=== PATIENT | male | born 1965 | race African-American/Black ===

== ENCOUNTER 2019-10-12 09:19 | Outpatient (CLI) | payer OTHER, BC, SELFPAY ==
--- NOTE | ~2019-10-12 | XR_ITS ---
XR lumbar spine 2-3V DATE: 10/12/2019 10:14 INDICATION: Lumbar radiculopathy TECHNIQUE: AP, lateral, coned lateral lumbosacral views COMPARISON: None FINDINGS: There is mild levoscoliosis of the thoracolumbar spine. No fracture or bone destruction or spondylolisthesis. The T12 and lumbar pedicles are intact. Lumbar and lumbosacral interspaces are well preserved. There is minimal degenerative spurring at L3 and L4. The sacroiliac joints are normal. IMPRESSION: Mild levoscoliosis and minimal degenerative change Reviewed, dictated and finalized at location [facility].
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
== END 2019-10-12 09:20 | disposition home or self-care (01) ==
PROVIDERS: PCP Internal Medicine; Visit Provider Internal Medicine
DX: S16.1XXA Strain of muscle, fascia and tendon at neck level, initial encounter (principal); M54.16 Radiculopathy, lumbar region; M41.86 Other forms of scoliosis, lumbar region
CPT/HCPCS: 72040; 72100